=== PATIENT | female | born 2005 | race Hispanic/Latino ===

== ENCOUNTER 2024-10-07 04:17 | Emergency (ER) | payer OTHER, MEDICAID, SELFPAY ==
--- NOTE | 2024-10-07 04:19 | ED.SOB ---
HPI - SOB/Dyspnea General Chief Complaint: Anxiety Stated Complaint: SOB Time Seen by Provider: 10/07/24 04:18 History of Present Illness HPI Narrative: Patient is a 19-year-old female history of anxiety presents to the emergency department for shortness of breath she states that she was at work started having difficulty breathing, states that after she continued to have difficulty breathing she started feeling numbness to her entire body felt like she was not able to move her upper and lower extremities, at time of initial evaluation patient hyperventilating tearful, saying she feels like she can not breathe. Was placed immediately on pulse ox patient 100% on room air. Patient states that she is worried she has having a panic attack, states that she knows take medications for this but states that this has happened previously. Upon immediate arrival patient's blood sugar 101. additional ROS HPI limited at initial evaluation given patient hyperventilating tearful however she is protecting her airway, no voice changes no stridor no trismus. Is able to follow commands appropriately Related Data Home Medications Medication Instructions Recorded Confirmed No Known Home Medications 10/07/24 10/07/24 Allergies Allergy/AdvReac Type Severity Reaction Status Date / Time No Known Drug Allergies Allergy Verified 10/07/24 04:22 Review of Systems Review of Systems Narrative: General: Denies fever, chills, weight loss HEENT: Denies headache, eye drainage, eye irritation, head trauma, sore throat, voice change Cardiovascular: Denies any chest pain, palpitations, shortness of breath, tachycardia Respiratory: positive shortness of breath, denies,cough, wheeze, stridor GI/: Denies any abdominal pain, nausea, vomiting, diarrhea, bright red blood per rectum, melanotic stools, urinary frequency, urinary retention, dysuria, hematuria MSK: Denies any joint pain, muscle pains, swelling Skin: Denies any rashes, lesions, discoloration Neuro: Denies any headache, lightheadedness, dizziness, fainting, weakness Psych: Denies SI/HI Patient History Social History Smoking Status: Never smoker Exam Narrative Exam Narrative: General: patient hyperventilating tearful HEENT: Normocephalic, atraumatic, PERRLA, normal sclera, eyelids normal, Neck: Active full range of motion, atraumatic Chest: Normal to inspection, negative crepitus, no overlying erythema ecchymosis Respiratory: hyperventilating however, not in acute respiratory distress, clear to auscultation bilaterally negative cough, wheeze, tachypnea, rhonchi, rales Cardiology: Regular rate rhythm negative gallop, murmur, rubs GI/: Normal to inspection, soft, nonrigid, no tenderness to palpation, exam deferred MSK: Full range of active range of motion of all 4 extremities, atraumatic Skin: No rashes lesions noted Neuro: Alert awake oriented x3, moves all 4 extremities spontaneously, cranial nerves intact, able to answer all questions appropriately follows commands appropriately Psych: Cooperative, negative suicidal or homicidal ideations, tearful affect Initial Vital Signs Initial Vital Signs: Vital Signs Temperature 97.9 F 10/07/24 04:23 Pulse Rate 102 H 10/07/24 04:23 Respiratory Rate 10 L 10/07/24 04:23 Blood Pressure 129/65 10/07/24 04:23 Pulse Oximetry 95 10/07/24 04:23 Oxygen Delivery Method Room Air 10/07/24 04:23 Course Orders Ordered: ED Orders 10/07/24 04:18 EKG-12 Lead Stat 10/07/24 04:29 Consult to FORWARDER OPERATOR - Systems Protection Technician Stat 10/07/24 04:30 BMP [Basic Metabolic Panel] Stat CBC No Diff [Complete Blood Count NO DIFF] Stat Discontinued Medications Lorazepam (Lorazepam 2 Mg/Ml Inj) 1 mg IV NOW ONE Stop: 10/07/24 04:19 Last Admin: 10/07/24 04:27 Dose: 1 mg Documented By: DAVE Potassium Chloride (Potassium Chloride 20 Meq Tab) 40 meq PO NOW ONE Stop: 10/07/24 04:56 Last Admin: 10/07/24 05:07 Dose: 40 meq Documented By: DAVE Vital Signs Vital signs: Vital Signs - 8 hr 10/07/24 04:23 Temperature 97.9 F Pulse Rate 102 H Respiratory Rate 10 L Blood Pressure 129/65 Pulse Oximetry 95 Oxygen Delivery Method Room Air MDM - SOB/Dyspnea Differential Diagnosis Differential diagnosis: Likely other ( electrolyte abnormality, anxiety, arrhythmia) Lab Data 10/07/24 04:30 10/07/24 04:30 Labs: Lab Results 10/07/24 Range/Units 04:30 WBC 8.7 (4.5-11.0) X10^3/uL RBC 4.44 (4.0-5.2) X10^6/uL Hgb 13.0 (12.0-16.0) g/dL Hct 38.0 (36-46) % MCV 85.7 (80-100) fL MCH 29.3 (26-34) PG MCHC 34.2 (30-36) % RDW 13.1 (11.6-14.8) % Plt Count 412 H (150-400) X10^3/uL Sodium 139 (137-145) mmol/L Potassium 3.1 L (3.4-5.1) mmol/L Chloride 106 (98-107) mmol/L Carbon Dioxide 18 L (22-32) mmol/L BUN 6 L (7-17) mg/dL Creatinine 0.64 (0.52-1.04) mg/dL Estimated GFR > 60 (>60) mL/min BUN/Creatinine Ratio 9.4 (6-22) Glucose 112 H (70-100) mg/dL Calcium 10.1 (8.4-10.2) mg/dL Point of Care Testing Test Results Negative Urine Dip Bedside Urine Glucose Negative Bedside Urine Bilirubin - Negative Bedside Urine Ketone +/- 5 Urine Specific [place] 1.01 Bedside Urine Occult Blood - Negative Bedside Urine pH 6 Bedside Urine Protein - Negative Bedside Urine Urobilinogen - Negative Bedside Urine Nitrite - Negative Bedside Urine Leukocytes - Negative Esterase ECG Data Interpretation: EKG interpreted by ED physician, sinus at 92 beats per minute, QTC 497, normal axis, nonspecific ST changes, no STEMI MDM Narrative Medical decision making narrative: patient is a 19-year-old female who presents from work for evaluation of shortness of breath, states that she is unable to catch her breath, states that as this is happening she is having difficulty feeling/moving her extremities, however at time of evaluation patient is moving all 4 extremities no focal deficits. At evaluation here in the emergency department patient hyperventilating tearful. Blood sugar initially checked 101. Patient had lab work EKG performed here EKG nonischemic, lab work without any leukocytosis, patient noted to have mild hypokalemia which was repleted here in the emergency department. Was able to tolerate this p.o.. 0454: patient was re-evaluated no new complaints at this time, she states that the medication has helped significantly she is feeling a lot better. I informed her as well as family at bedside that we are still awaiting lab work, they verbalized understanding of this, we will continue to monitor 0530: Patient re-evaluated complete resolution of symptoms, I informed her to follow up with her primary care doctor in outpatient setting, she verbalized understanding of this and agrees to being discharged home with outpatient follow up Discharge Plan Departure Patient Disposition: Home Clinical Impression: Hyperventilation, Acute anxiety Activity Restrictions/Additional Instructions: Please follow up with the primary care doctor Please read the discharge instructions sheet carefully and bring all papers to all doctor follow-up visits, as it may contain information that your doctor may want to see. Disease processes change and evolve, if your symptoms worsen or if you develop any new symptoms that are concerning to you please return for evaluation. Your evaluation today does not show any evidence of any life-threatening/serious illnesses requiring admission to the hospital or surgery. Please follow-up with your doctor for re-evaluation in approximately 1 day. Seek immediate medical attention for any worrisome symptoms. Prescriptions: No Action No Known Home Medications Referrals: Nicole Bennett ARNP, PASTA MAKER-C [Primary Care Provider] - Stand Alone Forms: Patient Portal/API/Survey, Work Release Note
[2024-10-07 04:23] VITALS: BP 129/65; PULSE 102; PULSE 79; RESP 10; RESP 30; TEMP 36.6; O2SAT 100; O2SAT 95; BMI 26.7
--- NOTE | 2024-10-07 04:26 | EKG_ITS ---
[address] [address] Test Date: 2024-10-07 Pat Name: Inés Mott Department: [facility] Room: Gender: Female [employer] Protector: RALPH : 2005 Requested By: Order Number: [id number] Reading MD: Abe Vanessa MD Measurements Intervals [place] Rate: 92 P: 20 DE: 148 QRS: 78 QRSD: 92 T: 43 QT: 402 QTc: 497 Interpretive Statements Normal sinus rhythm Prolonged QT Electronically Signed On 10-07-2024 7:20:57 PST by Abe Vanessa MD
[2024-10-07] MEDS: LORazepam 2 MG/ML INJ 1 MG IV (04:27)
[2024-10-07 04:30] VITALS: PULSE 75; RESP 18; O2SAT 100
[2024-10-07 04:37] VITALS: BP 105/67; PULSE 69; RESP 18; O2SAT 100
[2024-10-07 04:39] LABS: Mean Corpuscular HGB Conc 34.2 % (30-36); Mean Corpuscular Hemoglobin 29.3 PG (26-34); Mean Corpuscular Volume 85.7 fL (80-100); Platelet Count 412 X10^3/uL (150-400); Red Blood Cell Count 4.44 X10^6/uL (4.0-5.2); Red Cell Distribution Width 13.1 % (11.6-14.8); White Blood Cell Count 8.7 X10^3/uL (4.5-11.0)
[2024-10-07 04:51] LABS: BUN Creatinine Ratio 9.4 (6-22); Blood Urea Nitrogen 6 mg/dL (7-17); Calcium 10.1 mg/dL (8.4-10.2); Carbon Dioxide 18 mmol/L (22-32); Chloride 106 mmol/L (98-107); Estimated Glomerular Filt Rate > 60 mL/min (>60); Glucose 112 mg/dL (70-100); HEMOLYSIS < 15 (0-50); Potassium 3.1 mmol/L (3.4-5.1); Sodium 139 mmol/L (137-145)
[2024-10-07 05:01] VITALS: PULSE 89
[2024-10-07] MEDS: POTASSIUM CHLORIDE 20 MEQ TAB 40 MEQ PO (05:07)
[2024-10-07 05:30] VITALS: PULSE 84; RESP 20; O2SAT 95
--- NOTE | 2024-10-08 16:27 | CM.SWNOTE ---
ED GROCERY CARRIER Note: ED GROCERY CARRIER received consult post-discharge for follow up call. Per chart review, it could be assumed that the GROCERY CARRIER consult was placed for assistance with outpatient MH referral. ED GROCERY CARRIER utilized phone number in chart in an attempt to contact pt but number not in service. No other phone number identified in chart. If pt returns, please feel free to re-consult with GROCERY CARRIER if appropriate and phone number on file will need to be updated. DAMON Guerra
== END 2024-10-07 05:50 | disposition home or self-care (01) ==
PROVIDERS: Emergency Provider Student in an Organized Health Care Education/Training Program; PCP Nurse Practitioner Family
DX: R06.4 Hyperventilation (principal); F41.9 Anxiety disorder, unspecified; R07.9 Chest pain, unspecified
CPT/HCPCS: 36415; 80048; 81003; 81025; 85027; 93005; 93010; 96374; 99284; J2060